=== PATIENT | male | born 2000 | race Two or more races ===

== ENCOUNTER 2023-05-19 08:45 | Emergency (ER) | payer OTHER ==
[~2023-05-19] VITALS: Ht 177.8 cm; Wt 74.8 kg
[2023-05-19 11:51] LABS: HEMATOCRIT 41.8 % (39.0-48.0); HEMOGLOBIN 14.9 g/dL (13-16.00); MEAN CELL VOLUME 91.2 fL (80.0-100.00); MEAN CORPUSCULAR HEMOGLOBIN 32.4 pg (27.00-32.0); MEAN CORPUSCULAR HGB CONC 35.6 g/dl (32.0-36.0); PLATELET COUNT 182 K/uL (150-450); RED BLOOD COUNT 4.58 M/uL (4.00-6.00); RED CELL DISTRIBUTION WIDTH 12.5 % (11.5-14.5)
[2023-05-19 12:31] LABS: CALCIUM 9.9 mg/dL (8.5-10.1); CREATININE SERUM 1.23 mg/dL (0.70-1.30); GFR 74.28; POTASSIUM 3.99 mEq/L (3.5-5.1)
[2023-05-19 17:44] LABS: PH,URINE 6.5 (5.0-8.0); URINE APPEARANCE Clear; URINE BILIRRUBIN Negative (NEGATIVE); URINE BLOOD Negative; URINE COLOR Dark Yellow; URINE GLUCOSE Negative (NEGATIVE); URINE LEUKOCYTE Negative; URINE NITRATE Negative; URINE PROTEIN 30 (NEGATIVE); URINE UROBILINOGEN 0.2 E.U./dl
[2023-05-19 17:45] LABS: URINE RBC 18.8 uL (0.0-20.8); URINE WBC 4.6 uL (0.0-23.2)
== END 2023-05-19 20:01 | disposition home or self-care (01) ==
LOC: ER 08:45
PROVIDERS: General Practice
DX: K52.89 Other specified noninfective gastroenteritis and colitis (principal); E86.0 Dehydration
CPT/HCPCS: 36415; 96365; 96366; 99284; J2405; J3490; J7030